=== PATIENT | female | born 1965 | race African-American/Black ===

== ENCOUNTER → 2017-02-07 | Outpatient (CLI) | payer MEDICARE, MEDICAID ==
[~2017-02-07] MED LIST: AMLO10TA2 PO; ASPI1TAB57 PO; BACL20TA PO; BACLOF10P IT; CALCTAB PO; CALICUM PO; CHOL1CAP34 PO; DILA50CH CHEW; DULC10SU3 RECTAL; FLEE5TAB PO; LATA.005%O EACH EYE; LISI10TA3 PO; MELA5 PO; MENT4GEL2 TOPICAL; METO100T PO; MILKSUS PO; PERI8.6T PO; SIMV20TA PO; SORB70SO PO; TRAZ100T4 PO
[2017-02-07 14:05] LABS: AUTOMATED NEUTROPHIL # 3.3 TH/MM3 (1.8-7.7); BASOPHIL # 0.1 TH/MM3 (0-0.2); BASOPHIL % 0.8 % (0.0-2.0); EOSINOPHIL # 0.1 TH/MM3 (0-0.4); EOSINOPHIL % 1.3 % (0.0-4.0); HEMATOCRIT 42.1 % (35.0-46.0); HEMO FLAGS DIFF FINAL; LYMPH % 33.2 % (9.0-44.0); LYMPHOCYTE # 2.1 TH/MM3 (1.0-4.8); MEAN CORPUSCULAR HEMOGLOBIN 28.4 PG (27.0-34.0); NEUT % 53.7 % (16.0-70.0); PLATELET COUNT 232 TH/MM3 (150-450); RED BLOOD COUNT 4.73 MIL/MM3 (4.00-5.30); RED CELL DISTRIBUTION WIDTH 12.6 % (11.6-17.2); WHITE BLOOD COUNT 6.3 TH/MM3 (4.0-11.0)
[2017-02-07 14:06] LABS: BLOOD, URINE TRACE (NEG); GLUCOSE,URINE NEG (NEG); KETONE, URINE NEG (NEG); NITRITE,URINE NEG (NEG)
[2017-02-07 14:14] LABS: METHOD OF COLLECTION CLEAN CATCH; URINE COLOR YELLOW (YELLW/STRAW)
[2017-02-07 14:18] LABS: COMMENT (UR) CULT NOT INDICATED; COMMENT2 (UR) MUCOUS PRESENT; CULTURE IF INDICATED CULT NOT INDICATED; RBC, URINE 0-3 /hpf (0-3); SQUAMOUS EPITHELIAL CELL URINE 0-5 /hpf (0-5)
--- NOTE | 2017-02-08 18:23 | EKG ---
Date Performed: 02/07/2017 Time Performed: 13:35:51 PTAGE: 51 years EKG: SINUS BRADYCARDIA NONSPECIFIC T-WAVE ABNORMALITY BORDERLINE ECG PREVIOUS TRACING : 05/19/2007 05.00 DOCTOR: Aleks Valero Interpretating Date/Time 02/08/2017 18:16:55
== END ==
LOC: PHPRE 12:06
PROVIDERS: ATTEND Pain Medicine Interventional Pain Medicine
DX: Z01.812 Encounter for preprocedural laboratory examination (principal); Z01.810 Encounter for preprocedural cardiovascular examination; Z45.49 Encounter for adjustment and management of other implanted nervous system device; R94.31 Abnormal electrocardiogram [ECG] [EKG]
CPT/HCPCS: 36415; 81001; 84132; 85025; 93005

== ENCOUNTER → 2017-02-14 | Day surgery (SDC) | payer MEDICARE, MEDICAID ==
[~2017-02-14] VITALS: Ht 167.6 cm; Wt 68.0 kg
[~2017-02-14] MED LIST changes: +BACLOFEN IT ONE; +BUPIVACAINE/EPINEPHRINE 0.5% PF 30 ML VIAL ONE; -CALICUM PO; +CHLORHEXIDINE GLUCONATE 2 % 1 PACK (2 CLOTHS) TOPICAL PRN; +INSULIN HUMAN REGULAR 1,000 UNITS/10 ML VIAL SQ PRN; +LACTATED RINGER'S 1000 ML IV PRN; +METOPROLOL TARTRATE 25 MG TAB PO PRN; -MILKSUS PO; +ONDANSETRON HCL 4 MG/2 ML VIAL ONE; +POVIDONE IODINE 5% (ANTISEPSIS KIT) 4 APPLICATIONS EACH NARE PRN; +SODIUM CHLORID 0.9% 500 ML IV PRN; +SODIUM CHLORIDE 0.9% 20 ML VIAL ONE; +VANCOMYCIN 500 MG/NS 100 ML IV SCH
[2017-02-14 14:20] VITALS: BP 164/93; PULSE 58; RESP 16; TEMP 97.7; O2SAT 100
--- NOTE | 2017-02-15 21:53 | MP ---
cc: Karen URENA DATE OF SURGERY 02/14/2017 1965 PROCEDURE Replacement of [employer] Synchromed pump for intrathecal Baclofen PREPROCEDURE DIAGNOSIS End of battery life for Baclofen pump POSTPROCEDURE DIAGNOSIS End of battery life for Baclofen pump PROCEDURE IN DETAIL IV was started in the holding area. The patient was given IV antibiotics. Surgical consent forms were signed. Surgical site was marked. The patient was taken to the operating room, placed in the supine position. All pressure points were checked and padded. She was given general LMA anesthesia. Her abdomen was prepped with Chloraprep, draped with sterile drapes and covered with Ioban. Then the skin in the right upper quadrant was infiltrated with 0.5% Marcaine containing epinephrine. An incision was made over the existing pump. Sharp and blunt dissection were used to free the pump from the underlying tissue. Then a new [employer] incremental pump was filled with Baclofen on the side table. The distal extension catheter was disconnected from the old pump and immediately connected to the new pump. The new pump then was placed in the subcutaneous pocket with injection ports facing the skin. The incision was irrigated with Betadine. Closure took place with 3-0 Monocryl in the subcuticular tissue and 3-0 nylon on the skin. The incisions were covered with sterile adhesive dressings and the patient was taken to the recovery room with stable vital signs neurologically intact. MD YOLIS Wallis/ /12:18 PM /9:45 PM
== END | disposition home or self-care (01) ==
LOC: PHSDC 09:12
PROVIDERS: ATTEND Pain Medicine Interventional Pain Medicine
DX: Z45.49 Encounter for adjustment and management of other implanted nervous system device (principal); G89.4 Chronic pain syndrome; R53.2 Functional quadriplegia
CPT/HCPCS: 00630; 62350; 62362; C1772; J0475; J2405; J3010; J3370; J7120